=== PATIENT | female | born 1965 | race African-American/Black ===

== ENCOUNTER 2019-09-24 21:01 | Observation (INO) | payer OTHER, SELFPAY ==
[2019-09-24] VITALS (7 sets, daily range): BP systolic 124–159; BP diastolic 71–96; PULSE 67–84; RESP 17–19; TEMP 36.7; O2SAT 97–98
--- NOTE | ~2019-09-24 | CT_ITS ---
EXAMINATION: CTA chest PE protocol DATE: 09/24/2019 22:34 CDT INDICATION: Syncope. Dyspnea. TECHNIQUE: Computed tomographic angiography (CTA) of the chest was performed with 100 mL Omnipaque-35 0 intravenous contrast. The dose-length product was 1026.98 mGy-cm. Maximum intensity projection 3D-r econstructions of the aorta and other arteries were constructed by the technologist on a separate wor kstation. COMPARISON: Chest x-ray dated 09/24/2019. FINDINGS: Study is technically limited by motion artifact. There is pulmonary embolism in the left up per lobe segmental pulmonary artery, small thrombus burden. There is mediastinal and left hilar lymph adenopathy. Cardiomegaly. No significant pleural or pericardial effusion. No evidence for aortic aneu rysm or dissection. Multiple subsolid nodules in both lungs including the left upper and bilateral lo wer lobes. There is additional scattered areas of groundglass opacification in the lingula and left l ower lobe. There is a 2 cm some solid nodule in the left upper lobe, image 46. There are multiple clu stered subsolid nodules in the lingula, largest measuring 2.1 cm, image 62. There are pleural-based a reas of consolidation. There are changes of gastric bypass surgery in the upper abdomen. IMPRESSION: 1. Small filling defect left upper lobe segmental pulmonary artery, consistent with pulmonary embolis m, small thrombus burden. 2: Extensive mixed areas of subsolid nodularity, groundglass opacification and peripheral airspace co nsolidation. Differential diagnosis includes infection, metastatic disease, lymphoma and/or multiple areas of pulmonary infarction. 3: Mediastinal and left hilar lymphadenopathy. Cannot exclude metastatic disease or lymphoma. 4: Cardiomegaly. Reviewed, dictated and finalized at location A. IMPRESSION: 1. Small filling defect left upper lobe segmental pulmonary artery, consistent with pulmonary embolism, small thrombus burden. 2: Extensive mixed areas of subsolid nodularity, groundglass opacification and peripheral airspace consolidation. Differential diagnosis includes infection, m etastatic disease, lymphoma and/or multiple areas of pulmonary infarction. 3: Mediastinal and left hilar lymphadenopathy. Cannot exclude metastatic diseas e or lymphoma. 4: Cardiomegaly.
--- NOTE | ~2019-09-24 | XR_ITS ---
XR chest 1V 09/24/2019 21:53 Indication: Syncope. History of asthma. Procedure: AP view of the chest Comparison: No prior studies for comparison. Findings: Bibasilar airspace disease. Heart size normal. No pleural effusion, edema or pneumothorax. Impression: 1: Bibasilar airspace disease, compatible with pneumonia. Reviewed, dictated and finalized at location A. Impression: 1: Bibasilar airspace disease, compatible with pneumonia.
--- NOTE | ~2019-09-24 | CT_ITS ---
EXAMINATION: CT BRAIN W/O DATE: 09/24/2019 21:46 INDICATION: Headache TECHNIQUE: Computed tomography (CT) of the head was performed without intravenous contrast. The dose- length product was 605.33 mGy-cm. The mA was adjusted according to patient size. Iterative reconstruc tion technique was employed. COMPARISON: No prior studies for comparison. FINDINGS: Normal brain parenchymal volume for age. Normal mariscal-white differentiation. No acute intrac ranial hemorrhage, infarction, mass or mass effect. No ventriculomegaly or midline shift. Midline sagittal images demonstrate a normal corpus callosum, c raniovertebral junction and sella turcica. Basilar cisterns are patent. Paranasal sinuses and mastoids are pneumatized. No depressed skull fractures. IMPRESSION: 1. No acute intracranial abnormality. Reviewed, dictated and finalized at location A.
--- NOTE | ~2019-09-24 | US_ITS ---
EXAMINATION: US carotid duplex BI DATE: 09/25/2019 17:37 INDICATION: Syncope. Carotid stenosis. TECHNIQUE: Grayscale, color Doppler, and pulsed Doppler images of the cervical carotid arteries were obtained. The degree of vessel stenosis is placed in one of the following categories: normal, <50%, 5 0-69%, >=70% but less than near-occlusion, near-occlusion, or total occlusion. Note that percent sten osis relative to normal distal artery lumen diameter is indirectly measured from velocity measurement s as described by Rafita, et al. Radiology 2003; 229:340-346. Notes: Normal: Peak systolic velocity <125 centimeters/sec and no plaque <50%. Peak systolic velocity <125 ( EDV <40; ICA/CCA PSV ratio <2.0; used these factors only a tandem lesions or low cardiac output or co ntralateral disease) 50-69 %: PSV 125-230 (EDV 40-100; ratio 2-4) >= 70% but less than near occlusion: PSV greater than 230 (EDV > 100; ratio> 4.0) Near Occlusion: PSV that is variable; markedly narrowed lumen Occlusion: Absent flow on color/spectral Doppler and no lumen on mariscal scale. COMPARISON: None. FINDINGS: RIGHT: The right common carotid artery (CCA) peak systolic velocity (PSV) is 81 cm/s. The right internal car otid artery (ICA) PSV is 87 cm/s. The right ICA end-diastolic velocity (EDV) is 18 cm/s. The right IC A/CCA PSV ratio is 1.1. The external carotid artery (ECA) PSV is 56 cm/s. There is antegrade flow in the right vertebral artery. LEFT: The left CCA PSV is 96 cm/s. The left ICA PSV is 110 cm/s. The left ICA EDV is 21 cm/s. The left ICA/ CCA PSV ratio is 1.1. The ECA PSV is 92 cm/s. There is antegrade flow in the left vertebral artery. IMPRESSION: 1. Less than 50% stenosis in the right internal carotid artery by sonographic criteria. 2. Less than 50% stenosis in the left internal carotid artery by sonographic criteria. Reviewed, dictated and finalized at location A. IMPRESSION: 1. Less than 50% stenosis in the right internal carotid artery by sonographic price thakur. 2. Less than 50% stenosis in the left internal carotid artery by sonographic coral ortiz.
--- NOTE | ~2019-09-24 | US_ITS ---
EXAMINATION:US venous doppler LE BI INDICATION:Leg swelling. Evaluate for DVT. TECHNIQUE: Multiple grayscale, color flow and Doppler images of the lower extremity deep venous syste ms were obtained and reviewed. COMPARISON:No prior studies for comparison. FINDINGS: The common femoral, superficial femoral and popliteal veins demonstrate normal respiratory variation, augmentation and compressibility. Color flow is also seen within the posterior tibial, pe roneal, greater saphenous and profunda veins. IMPRESSION: 1: No lower extremity deep venous thrombosis. Reviewed, dictated and finalized at location A.
--- NOTE | 2019-09-24 21:25 | ECG_ITS ---
Measurements Intervals [place] Rate: 75 P: 54 [place]: 182 QRS: 19 QRSD: 91 T: 12 QT: 387 QTc: 434 Interpretive Statements SINUS RHYTHM LOW QRS VOLTAGE IN PRECORDIAL LEADS BORDERLINE ST-T WAVE ABNORMALITY- INFERIOR LEADS BORDERLINE ECG Electronically Signed On 09-25-2019 7:22:41 CDT by Sandeep Castorena D.O.
--- NOTE | 2019-09-24 21:25 | ED.GENADULT ---
HPI - General Adult General Chief complaint: Fall Stated complaint: Fell down, syncope, CRUZ Time Seen by Provider: 09/24/19 21:18 Source: RN notes reviewed History of Present Illness HPI narrative: Patient presents emergency department for headache. Patient states she had a syncopal episode approximately 6 days ago. States she woke up and felt lightheaded walk to the kitchen to get something to drink and when she was walking on the re[place] and had a syncopal episode. She states she is had no further syncopal episodes since that time but states she is had a residual headache. She states she feels mildly unsteady on her feet but denies any vision changes numbness or tingling of the extremities weakness of any extremities chest pain, shortness of breath abdominal pain nausea vomiting or any other symptoms. States she last took Tylenol this morning Related Data Home Medications Medication Instructions Recorded Confirmed albuterol sulfate 1.25 mg INHALATION Q4H 09/24/19 levocetirizine mg 09/24/19 Allergies Allergy/AdvReac Type Severity Reaction Status Date / Time clarithromycin Allergy Unknown Verified 09/24/19 23:27 clindamycin Allergy Rash Verified 09/24/19 23:27 gabapentin Allergy Swelling Verified 09/24/19 23:27 NSAIDS (Non-Steroidal Allergy Other Verified 09/24/19 23:27 Anti-Inflamma peanut Allergy Anaphylaxis Verified 09/24/19 23:27 Penicillins Allergy Hives Verified 09/24/19 23:27 sulfamethoxazole Allergy Gastrointestinal Verified 09/24/19 23:27 [From Bactrim] Upset trimethoprim [From Bactrim] Allergy Gastrointestinal Verified 09/24/19 23:27 Upset Review of Systems Review of Systems: Narrative: Gen.: Denies fevers or chills Eyes: Denies eye pain or visual change ENT: Denies congestion Respiratory: Denies shortness of breath or cough CV: Reports syncope GI: Denies abdominal pain nausea, emesis or diarrhea Musculoskeletal: Denies back pain or muscle pain Neuro: Denies numbness, tingling, weakness or focal weakness, reports headache Skin: Denies rash Except as documented, all other systems reviewed and negative PMF Past Medical History Medical History (Updated 09/24/19 @ 23:59 by Demetri Acosta DO) Asthma IgG4 deficiency Social History Social History (Updated 09/24/19 @ 21:27 by Demetri Acosta DO) Smoking status: Never smoker Gender identity (if verbalized by the patient): Female Exam Narrative: Exam Narrative: APPEARANCE: No acute distress, nontoxic, resting in bed HEENT: Normocephalic, atraumatic, OMM, TMs clear bilaterally EYES: PERRL, EOMI NECK: Supple, nontender, full range of motion without pain, no meningismus RESPIRATORY: No respiratory distress, clear to auscultation bilaterally with no rhonchi wheezing or rales CARDIOVASCULAR: RRR s murmur ABDOMINAL: Soft, nontender, nondistended MUSCULOSKELETAL: Moves all extremities. No clubbing, cyanosis or edema. NEURO: A and O ?3, following commands, speech normal, no facial droop,muscle strength 5 out of 5 bilateral upper and lower extremities SKIN:: Warm, dry. Normal Color PSYCHIATRIC: Normal affect/mood Course Course Emergency Course: Discussed Dr. Banks presentation work-up. Agrees with plan for Lovenox and Levaquin further inpatient evaluation Discussed with patient and family results of workup and diagnosis. Discussed need for admission. Patient and family understand and agree to current treatment plan After admission and discussion with patient regarding findings on CT scan the patient's now states to nursing staff that he did just recently get over COVID-19 Vital Signs Vital signs: Vital Signs Temperature 98.1 F 09/24/19 21:05 Pulse Rate 84 09/24/19 21:05 Respiratory Rate 18 09/24/19 21:05 Blood Pressure 138/72 09/24/19 21:05 Pulse Oximetry 97 09/24/19 21:05 Temperature 98.1 F 09/24/19 21:05 Pulse Rate 72 09/24/19 22:35 Respiratory Rate 19 09/24/19 22:35 Blood Pressure
[2019-09-24 21:38] LABS: Basophils Percent Auto 0.2 % (0.2-1.2); Eosinophils Percent Auto 0.9 % (0-4.4); Hemoglobin 11.6 g/dL (12.0-15.0); Immature Granulocyte Absolute 0.02 K/mm3 (0.00-0.031); Immature Granulocyte Percent A 0.4 % (0-0.5); Lymphocytes Absolute Auto 2.16 K/mm3 (0.9-3.2); Lymphocytes Percent Auto 47.4 % (18.3-44.2); Mean Corpuscular HGB Conc 31.4 g/dl (32-36); Mean Corpuscular Hemoglobin 24.4 pg (26-34); Mean Corpuscular Volume 77.7 fl (80-100); Mean Platelet Volume 10.6 fl (7.4-10.4); Monocytes Absolute Auto 0.3 K/mm3 (0.1-0.6); Neutrophils Percent Auto 44.1 % (45.5-73.1); Platelet Count Result 242 k/mm3 (150-375); Red Blood Count 4.76 M/mm3 (4.2-5.4); Red Cell Distribution Width 15.7 % (11.5-14.5); White Blood Count 4.6 K/mm3 (4.5-10.0)
[2019-09-24 21:47] LABS: Prothrombin Time 13.2 Seconds (11.1-14.7)
[2019-09-24 21:48] LABS: Partial Thromboplastin Time 30.6 SECONDS (22.3-36.8)
[2019-09-24 21:49] LABS: Alanine Aminotransferase 16 U/L (4-35); Albumin Level 4.3 g/dL (3.5-5.1); Alkaline Phosphatase 63 U/L (38-126); Aspartate Amino Transferase 29 U/L (14-36); Bilirubin,Total 0.2 mg/dL (0.2-1.3); Blood Urea Nitrogen 10 mg/dL (7-17); Calcium 9.3 mg/dL (8.4-10.2); Carbon Dioxide 28 mmol/L (22-30); Chloride 102 mmol/L (98-107); Estimated CRCL calculation 115 ml/min; Estimated Glomerular Filt Rate > 60; Glucose 98 mg/dL (65-105); Sodium 138 mmol/L (137-145)
[2019-09-24 22:01] LABS: Troponin I < 0.012 ng/mL (0.000-0.034)
[2019-09-24 22:23] LABS: Add Urine Microscopic? NO; Appearance Urine Clear (Clear); Bilirubin Urine Negative (Negative); Blood Urine Negative (Negative); Color Urine Straw (Yellow); Glucose Urine UA Negative (Negative); Ketones Urine Negative (Negative); Leukocyte Esterase Ur Negative LEU/UL (Negative); Mucus Urine Rare /lpf; Nitrate Urine Negative (Negative); Protein Urine Negative (Negative); RBC Urine 0-2 /hpf (0-2); Specific Grav Ur 1.012 (1.001-1.035); Squamous Epithelial Cell Urine Rare /hpf (Few); Urobilinogen Urine Negative mg/dL (<2.0); WBC Urine 0-3 /hpf
[2019-09-24] MEDS: SODIUM CHLORIDE 0.9% IV 1,000 ML 999 ML IV CONT ×2 (22:23)
[2019-09-24] MEDS: ENOXAPARIN 60 MG/0.6 ML SYRINGE SUB-Q (23:49)
[2019-09-24] MEDS: ENOXAPARIN 80 MG/0.8 ML SYRINGE SUB-Q (23:49)
[2019-09-24 23:56] LABS: Lactic Acid Reflex 0.8 mmol/L (0.7-2.1)
[2019-09-25] VITALS (12 sets, daily range): BP systolic 114–140; BP diastolic 56–71; PULSE 62–89; RESP 16–20; TEMP 35.8–37.1; O2SAT 98–100; BMI 49.4
--- NOTE | 2019-09-25 01:21 | ADMGEN ---
This patient, Marie Orourke, was admitted to [facility] Surg Room 328-01. Patient/family oriented to hospital policies and general routines including ID bracelet, bed and alarms, visiting hours, pain management, procedures, bathroom and other care routines, personal items, smoking policy, room service/diet, and visiting hours. Valuables list has been completed. Information on how to activate the Rapid Response Team has been discussed. Patient/Family are encouraged to report perceived risks to care and to ask questions if they do not understand what they are told or what they should do.
--- NOTE | 2019-09-25 02:09 | PM.IMHP ---
H&P: HPI History of Present Illness Chief complaint: Pulmonary embolism, community-acquired pneumonia Narrative: This is a pleasant 54 year old Female with known asthma and IgG4 deficiency who presented to the [facility] with a complaint of a headache. She apparently suffered a syncopal episode approximately 1 week ago at home as she was walking back to her room from the kitchen. She remembers feeling very dizzy on her way back to her room before passing out. The patient also experienced fever for two days following her syncopal episode. Since then, she has had a temperature of about 99 degrees F. She also reports starting to have a cough today with bloody sputum. She denies any significant shortness of breath. She also denies any chest pain, abdominal pain, nausea, vomiting, diarrhea, dysuria, or focal neurological symptoms. Her is known to have tested positive for Covid-19 and was quaranteened. Her last close contact with him was over 2 weeks ago. She admits that since she had her episode of syncope she has been just laying around this past week. No recent surgery or long distance travel. The patient is not on hormone replacement therapy. The patient was evaluated in the ER and found to have a small filling defect left upper lobe segmental pulmonary artery, consistent with pulmonary embolism, small thrombus burden as well as extensive mixed areas of subsolid nodularity, groundglass opacification and peripheral airspace consolidation. The patient was treated with therapeutic SC Lovenox as well as IV antibiotics for possible bacterial pneumonia. She was swabbed for COVID-19 and admitted to the hospital for further care. no other complaints. Review of Systems Review of Systems: All systems reviewed & are unremarkable except as noted in HPI and below PMFSH Past Medical History Medical History (Updated 09/25/19 @ 02:24 by Himanshu Banks MD) Asthma IgG4 deficiency Surgical History Surgical History (Updated 09/25/19 @ 02:18 by Himanshu Banks MD) Hx of lymph node biopsy Family History Family History Father Acute myocardial infarction Hypertension Prostate carcinoma Mother Cerebrovascular accident Congestive heart failure Diabetes mellitus Social History Social History Smoking status: Never smoker Alcohol intake: never Substance use: never Gender identity (if verbalized by the patient): Female Spiritual care concerns: No Meds Home Medications and Allergies Home Medications Medication Instructions Recorded Confirmed Type albuterol sulfate 1.25 mg INHALATION QID PRN 09/24/19 09/25/19 History levocetirizine 5 mg PO HS 09/24/19 09/25/19 History budesonide-formoterol [Symbicort] 2 puff INHALATION Q12H 09/25/19 09/25/19 History calcium carbonate-vitamin D3 1 tablet PO DAILY 09/25/19 09/25/19 History [Calcium 500 + D] fluticasone propionate [Flonase 1 spray INTRANASAL DAILY 09/25/19 09/25/19 History Allergy Relief] prednisone 10 mg PO DAILY 09/25/19 09/25/19 History Allergies Allergy/AdvReac Type Severity Reaction Status Date / Time clarithromycin Allergy Severe Hives Verified 09/25/19 01:36 clindamycin Allergy Severe Hives Verified 09/25/19 01:36 gabapentin Allergy Severe Hives Verified 09/25/19 01:36 peanut Allergy Severe Anaphylaxis Verified 09/25/19 01:36 Penicillins Allergy Severe Hives Verified 09/25/19 01:36 NSAIDS (Non-Steroidal AdvReac Severe S/P Verified 09/25/19 01:36 Anti-Inflamma GASTRIC SLEEVE sulfamethoxazole AdvReac Severe Gastrointestinal Verified 09/25/19 01:36 [From Bactrim] Upset trimethoprim [From Bactrim] AdvReac Severe Gastrointestinal Verified 09/25/19 01:36 Upset Vital Signs Vital Signs - 24 hr 09/24/19 21:05 09/24/19 21:16 09/24/19 21:33 Temperature 36.7 C Pulse Rate 84 67 Respiratory Rate 18 17 Blood P
[2019-09-25 06:54] LABS: Basophils Percent Auto 0.4 % (0.2-1.2); Eosinophils Absolute Auto 0.1 K/mm3 (0-0.3); Eosinophils Percent Auto 0.9 % (0-4.4); Hematocrit 32.7 % (37.0-47.0); Hemoglobin 10.4 g/dL (12.0-15.0); Immature Granulocyte Absolute 0.01 K/mm3 (0.00-0.031); Immature Granulocyte Percent A 0.2 % (0-0.5); Lymphocytes Absolute Auto 3.41 K/mm3 (0.9-3.2); Lymphocytes Percent Auto 60.7 % (18.3-44.2); Mean Corpuscular HGB Conc 31.8 g/dl (32-36); Mean Corpuscular Hemoglobin 24.5 pg (26-34); Mean Corpuscular Volume 77.1 fl (80-100); Mean Platelet Volume 10.5 fl (7.4-10.4); Monocytes Absolute Auto 0.5 K/mm3 (0.1-0.6); Monocytes Percent Auto 8.2 % (2.6-8.5); Neutrophils Absolute Auto 1.7 K/mm3 (1.3-6.7); Neutrophils Percent Auto 29.6 % (45.5-73.1); Platelet Count Result 203 k/mm3 (150-375); Red Blood Count 4.24 M/mm3 (4.2-5.4); Red Cell Distribution Width 15.7 % (11.5-14.5); White Blood Count 5.6 K/mm3 (4.5-10.0)
[2019-09-25 07:04] LABS: Alanine Aminotransferase 13 U/L (4-35); Albumin Level 3.6 g/dL (3.5-5.1); Alkaline Phosphatase 49 U/L (38-126); Aspartate Amino Transferase 22 U/L (14-36); Bilirubin,Total 0.2 mg/dL (0.2-1.3); Blood Urea Nitrogen 7 mg/dL (7-17); Calcium 8.4 mg/dL (8.4-10.2); Carbon Dioxide 25 mmol/L (22-30); Chloride 105 mmol/L (98-107); Estimated CRCL calculation 118 ml/min; Estimated Glomerular Filt Rate > 60; Glucose 101 mg/dL (65-105); Potassium 3.4 mmol/L (3.4-5.0); Sodium 136 mmol/L (137-145)
[2019-09-25] MEDS: predniSONE 10 MG TABLET PO (08:19)
[2019-09-25] MEDS: FLUTICASONE PROPIONATE 0.05% NA SPR 16 GM BTL (*BKC) 1 SPRAY NASAL (08:19)
[2019-09-25] MEDS: ENOXAPARIN 80 MG/0.8 ML SYRINGE SUB-Q ×2 (09:00→20:35)
[2019-09-25] MEDS: ENOXAPARIN 60 MG/0.6 ML SYRINGE SUB-Q ×2 (09:00→20:35)
[2019-09-25] MEDS: ACETAMINOPHEN 325 MG TABLET 650 MG PO ×3 (11:20→21:30)
--- NOTE | 2019-09-25 12:50 | PM.IMPN ---
Progress Note: A&P Assessment and Plan (1) Pulmonary embolism: Qualifiers: Acute cor pulmonale presence: without acute cor pulmonale Chronicity: acute Pulmonary embolism type: unspecified Qualified Code(s): I26.99 - Other pulmonary embolism without acute cor pulmonale Code(s): I26.99 - Other pulmonary embolism without acute cor pulmonale Status: Acute Assessment and Plan: Seen in left upper lobe segmental pulmonary artery with small thrombus burden. This may be due to the patient being sedentary more recently, or may be related to COVID infection. She is not on any form of hormone replacement therapy. She denies any history of clotting disorder. We had a long discussion regarding risks of anticoagulation therapy, as well as risks of leaving PE untreated. The patient understands and requests to continue with anticoagulation therapy. Continue therapeutic Lovenox Plan to transition to oral anticoagulant. Care coordination has been consulted for pricing. Check lower extremity Doppler ultrasound to rule out DVT Continue to monitor closely (2) Community acquired pneumonia: Qualifiers: Laterality: unspecified laterality Qualified Code(s): J18.9 - Pneumonia, unspecified organism Code(s): J18.9 - Pneumonia, unspecified organism Status: Acute Assessment and Plan: CXR demonstrates bibasilar airspace disease consistent with pneumonia. The patient has productive cough. She has been afebrile and without leukocytosis. She is maintaining adequate oxygenation on room air. Continue IV Levaquin Blood cultures are pending Will attempt collection of sputum culture Continue oxygen supplementation as needed with goal >90% Continue bronchodilators and supportive care with Mucinex and Tylenol as needed (3) Suspected COVID-19 virus infection: Code(s): Z20.828 - Contact with and (suspected) exposure to other viral communicable diseases Status: Acute Assessment and Plan: She has been tested for COVID-19. Her recently recovered from COVID-19 approximately 2 weeks ago. Continue isolation precautions Await testing results Trend acute phase reactants Continue supportive care as above (4) Syncope and collapse: Code(s): R55 - Syncope and collapse Status: Acute Assessment and Plan: She had a syncopal episode approximately 1 week ago in her home. She recalls feeling dizzy before passing out. This may have been related to acute illness or dehydration. She is asymptomatic at this time. Continue to monitor on telemetry Echocardiogram and carotid Doppler ultrasound have been ordered and will await results Will check TSH with reflex T4 Continue to monitor closely (5) Headache: Qualifiers: Headache type: tension-type Headache chronicity pattern: chronic headache Intractability: not intractable Qualified Code(s): G44.229 - Chronic tension-type headache, not intractable Code(s): R51 - Headache Status: Acute Assessment and Plan: Frontal and temporal pressure headache which has been ongoing for approximately 2 weeks. Not similar to prior migraines patient has had. Head CT performed in ED with no acute abnormalities. Suspect this is related to acute illness, as there have been reports of prolonged headache in patients who are COVID positive. Continue acetaminophen as needed. Patient has been taking acetaminophen home with relief. Continue Flonase and Xyzal to help relieve sinus pressure/congestion Continue to monitor closely (6) Asthma: Qualifiers: Asthma severity: unspecified severity Asthma persistence: unspecified Asthma complication type: unspecified Qualified Code(s): J45.909 - Unspecified asthma, uncomplicated Code(s): J45.909 - Unspecified asthma, uncomplicated Status: Chronic Assessment and Plan: Stable at this time. She denies feeling s
[2019-09-25 13:09] LABS: SARS-CoV-2 RNA PCR Positive
[2019-09-26] VITALS (8 sets, daily range): BP systolic 130–140; BP diastolic 54–70; PULSE 55–81; RESP 16–18; TEMP 36.6–36.7; O2SAT 97–99
[2019-09-26] MEDS: ACETAMINOPHEN 325 MG TABLET 650 MG PO ×3 (01:36→12:01)
--- NOTE | 2019-09-26 02:20 | ECHO_ITS ---
Patient Info Name: Marie Orourke Age: 54 years : 1965 Gender: Female Ht: 67 in Wt: 315 lbs BSA: 2.68 m2 HR: 55 bpm BP: 130 / 54 mmHg Technical Quality: Fair Exam Date: 09/26/2019 11:18 AM Exam Location: [facility] Pulmonary Exam Room: [facility] Patient Status: Inpatient Admit Date: 09/24/2019 Staff Ordering Physician: Himanshu Banks MD Ship Worker: Ivania Jo RDCS Attending Provider: Celeste Zurita PA-C Referring Physician: Darren GARRIDO; Exam Type: CA echo doppler color flow Study Info Indications - syncope Complete two-dimensional, color flow and Doppler transthoracic echocardiogram is performed. covid protocol. Summary 1. Left ventricular chamber dimension is normal. 2. Left ventricular systolic function is normal, estimated at 65-70%. 3. There is mildly increased left ventricular wall thickness. 4. Left ventricular septal wall motion is abnormal with septal motion related to bundle branch block. 5. The left ventricular diastolic function is abnormal. 6. E/e' 11 is mildly elevated. 7. There is mild aortic valve sclerosis. 8. No pulmonary hypertension, estimated pulmonary arterial systolic pressure is 21 mmHg. Left Ventricle E/e' 11 is mildly elevated. Left ventricular chamber dimension is normal. Left ventricular systolic function is normal, estimated at 65-70%. There is mildly increased left ventricular wall thickness. Left ventricular septal wall motion is abnormal with septal motion related to bundle branch block. The left ventricular diastolic function is abnormal. Right Ventricle Right ventricular chamber dimension is normal. Right ventricular systolic function is normal. Left Atria Left atrial chamber dimension is normal. Right Atria Right atrial chamber dimension is normal. Aortic Valve The aortic valve is trileaflet. There is mild aortic valve sclerosis. There is no aortic valve stenosis. There is no aortic valve regurgitation. Pulmonic Valve There is no pulmonic regurgitation. Mitral Valve There is no mitral valve stenosis. There is no mitral valve regurgitation. Tricuspid Valve There is no tricuspid valve regurgitation. No pulmonary hypertension, estimated pulmonary arterial systolic pressure is 21 mmHg. Pericardium/Pleural There is no pericardial effusion. Inferior Vena Cava Normal inferior vena cava with >50% collapse upon inspiration consistent with normal right atrial pressure, 5 mmHg. Aorta The aortic root size at the sinus of Valsalva is normal. Left Ventricular Outflow Tract Name Value Normal LVOT 2D LVOT Diameter 2.0 cm LVOT Doppler LVOT Peak Gradient 4 mmHg LVOT Mean Gradient 3 mmHg LVOT VTI 23 cm LVOT VTI/AV VTI Ratio 0.9 LVOT Stroke Volume 73 ml LVOT CO 14.8 l/min LVOT CI 5.5 l/min/m2 Pulmonic Valve Name
[2019-09-26 06:32] LABS: Hematocrit 33.8 % (37.0-47.0); Hemoglobin 10.8 g/dL (12.0-15.0); Mean Corpuscular Hemoglobin 24.8 pg (26-34); Mean Corpuscular Volume 77.5 fl (80-100); Mean Platelet Volume 10.3 fl (7.4-10.4); Platelet Count Result 274 k/mm3 (150-375); Red Blood Count 4.36 M/mm3 (4.2-5.4); Red Cell Distribution Width 15.5 % (11.5-14.5); White Blood Count 5.7 K/mm3 (4.5-10.0)
[2019-09-26 06:50] LABS: Blood Urea Nitrogen 7 mg/dL (7-17); CRP 0.8 mg/dL (<1.0); Calcium 8.9 mg/dL (8.4-10.2); Carbon Dioxide 25 mmol/L (22-30); Chloride 105 mmol/L (98-107); Creatine Kinase 52 U/L (30-135); Estimated CRCL calculation 118 ml/min; Estimated Glomerular Filt Rate > 60; Glucose 97 mg/dL (65-105); Lactate Dehydrogenase 557 U/L (313-618); Potassium 3.5 mmol/L (3.4-5.0); Sodium 138 mmol/L (137-145)
[2019-09-26] MEDS: ENOXAPARIN 60 MG/0.6 ML SYRINGE SUB-Q (08:53)
[2019-09-26] MEDS: ENOXAPARIN 80 MG/0.8 ML SYRINGE SUB-Q (08:53)
[2019-09-26] MEDS: predniSONE 10 MG TABLET PO (08:54)
[2019-09-26] MEDS: FLUTICASONE PROPIONATE 0.05% NA SPR 16 GM BTL (*BKC) 1 SPRAY NASAL (08:54)
--- NOTE | 2019-09-26 14:30 | PM.DS ---
DS: Admitting Diagnosis Admitting Diagnosis Admitting Diagnosis: Other pulmonary embolism without acute cor pulmonale DS: Discharge Diagnosis Discharge Diagnosis (1) Pulmonary embolism: Qualifiers: Acute cor pulmonale presence: without acute cor pulmonale Chronicity: acute Pulmonary embolism type: unspecified Qualified Code(s): I26.99 - Other pulmonary embolism without acute cor pulmonale Code(s): I26.99 - Other pulmonary embolism without acute cor pulmonale Status: Acute Assessment and Plan: Evident on CTA in left upper lobe segmental pulmonary artery with small thrombus burden. This may be secondary to COVID-19, or simply may be due to patient recently becoming more sedentary.She is not on any form of hormone replacement therapy and denied any history of clotting disorder. LE Doppler negative for DVT. She was initiated on therapeutic Lovenox. She was relatively asymptomatic and had adequate oxygenation. We had a long discussion regarding risks of anticoagulation therapy to which she voiced understanding and agreed to continue with Eliquis. We discussed importance of monitoring for signs/symptoms of bleeding. She will follow up with her PCP via telemedicine in 1 week and schedule an in person appointment as soon as she is able. (2) COVID-19: Code(s): U07.1 - COVID-19 Status: Acute Assessment and Plan: She tested positive for COVID-19 on 09/24/19. Her recently tested positive as well. She was placed on isolation precautions. We discussed self-isolation and following that, social distancing, mask wearing, hand hygiene, and other preventative measures. She will follow up with PCP in 1 week. (3) Community acquired pneumonia: Qualifiers: Laterality: unspecified laterality Qualified Code(s): J18.9 - Pneumonia, unspecified organism Code(s): J18.9 - Pneumonia, unspecified organism Status: Acute Assessment and Plan: CXR showed bibasilar airspace disease consistent with pneumonia, likely secondary to COVID-19. She had productive cough, but remained afebrile and without leukocytosis. She maintained adequate oxygenation on room air. She was treated with IV Levaquin which she will continue for 5 days to complete a full course. Blood cultures were negative. (4) Syncope and collapse: Code(s): R55 - Syncope and collapse Status: Acute Assessment and Plan: She had a syncopal episode approximately 1 week ago in her home. She recalls feeling dizzy before passing out. This may have been related to acute illness or dehydration. Carotid doppler US showed <50% stenosis of both right and left ICA. Echo showed EF 65-70%, abnormal septal wall motion with bundle branch block, mild aortic sclerosis, and normal pulmonary artery pressure. She was monitored on telemetry which did not show any significant arrhythmias or pauses. She was instructed to stay well hydrated and she will need to follow up with her PCP to discuss these findings. (5) Headache: Qualifiers: Headache chronicity pattern: chronic headache Headache type: tension-type Intractability: not intractable Qualified Code(s): G44.229 - Chronic tension-type headache, not intractable Code(s): R51 - Headache Status: Acute Assessment and Plan: She complained of frontal and temporal pressure headache which had been ongoing for approximately 2 weeks and was not similar to prior migraines patient has had. Head CT performed in ED with no acute abnormalities. I suspect this is related to acute illness, as there have been reports of prolonged headache in patients who are COVID positive. Headache improved with acetaminophen. Continue Flonase and Xyzal to help relieve sinus pressure/congestion. (6) Asthma: Qualifiers: Asthma complication type: unspecified Asthma persistence: unspecified Asthma severity: unspecified severity Qualified Code(s): J4
== END 2019-09-26 15:55 | disposition home or self-care (01) ==
LOC: ANHED 22:11 → ANH3MEDSUR 23:42
PROVIDERS: Physician Assistant; Admitting Provider Family Medicine; Emergency Provider Emergency Medicine; Visit Provider Internal Medicine
DX: U07.1 COVID-19 (principal); J12.89 Other viral pneumonia; I26.99 Other pulmonary embolism without acute cor pulmonale; J45.909 Unspecified asthma, uncomplicated; D80.3 Selective deficiency of immunoglobulin G [IgG] subclasses; G44.229 Chronic tension-type headache, not intractable; R55 Syncope and collapse; R22.43 Localized swelling, mass and lump, lower limb, bilateral; Z79.899 Other long term (current) drug therapy
CPT/HCPCS: 36415; 70450; 71045; 71275; 80048; 80053; 81003; 81025; 82550; 82728; 83605; 83615; 84484; 85025; 85027; 85610; 85730; 86140; 87040; 87635; 93005; 93306; 93880; 93970; 94640; 96361; 96365; 96372; 96374; 96375; 96376; 99291; A9270; C9803; G0378; J0131; J1650; J1956; J7030; J7512; Q9967; U0003

== ENCOUNTER 2019-10-20 14:28 | Emergency (ER) | payer OTHER, SELFPAY ==
--- NOTE | ~2019-10-20 | XR_ITS ---
XR finger 5th RT min 2V DATE: 10/20/2019 15:15 INDICATION: Fall on October 18 onto right fifth digit; pain and swelling at the middle phalanx TECHNIQUE: 4 views COMPARISON: None FINDINGS: There is a nondisplaced transverse metaphyseal fracture of the middle phalanx. There is no significant angulation. There is osteoarthritic change at the interphalangeal joints. IMPRESSION: Nondisplaced metaphyseal fracture of middle phalanx of fifth digit Reviewed, dictated and finalized at location B.
[2019-10-20 14:31] VITALS: BP 131/76; PULSE 94; RESP 16; TEMP 36.7; O2SAT 100
--- NOTE | 2019-10-20 15:51 | ED.UPPEXIN ---
HPI - Extremity Injury (Upper) General Chief Complaint: Extremity Injury, Upper Stated Complaint: R HAND INJURY Time Seen by Provider: 10/20/19 14:40 History of Present Illness HPI narrative: Patient is a 54-year-old female who presents with right fifth finger pain. Reports 1 month ago when she had a PE with syncope and COVID she fell onto her right finger and never had it imaged. Since then it has been swollen and occasionally painful. She has developed some mild improvement in her range of motion but thought she should have it evaluated. No numbness or tingling. No redness. No additional areas of pain. Related Data Home Medications Medication Instructions Recorded Confirmed albuterol sulfate 1.25 mg INHALATION QID PRN 09/24/19 09/25/19 levocetirizine 5 mg PO HS 09/24/19 09/25/19 budesonide-formoterol [Symbicort] 2 puff INHALATION Q12H 09/25/19 09/25/19 calcium carbonate-vitamin D3 1 tablet PO DAILY 09/25/19 09/25/19 [Calcium 500 + D] fluticasone propionate [Flonase 1 spray INTRANASAL DAILY 09/25/19 09/25/19 Allergy Relief] prednisone 10 mg PO DAILY 09/25/19 09/25/19 Allergies Allergy/AdvReac Type Severity Reaction Status Date / Time clarithromycin Allergy Severe Hives Verified 09/25/19 01:36 clindamycin Allergy Severe Hives Verified 09/25/19 01:36 gabapentin Allergy Severe Hives Verified 09/25/19 01:36 peanut Allergy Severe Anaphylaxis Verified 09/25/19 01:36 Penicillins Allergy Severe Hives Verified 09/25/19 01:36 NSAIDS (Non-Steroidal AdvReac Severe S/P Verified 09/25/19 01:36 Anti-Inflamma GASTRIC SLEEVE sulfamethoxazole AdvReac Severe Gastrointestinal Verified 09/25/19 01:36 [From Bactrim] Upset trimethoprim [From Bactrim] AdvReac Severe Gastrointestinal Verified 09/25/19 01:36 Upset Review of Systems Musculoskeletal: Musculoskeletal: Reports arthralgias and Reports joint swelling Neurologic: Denies focal weakness and Denies numbness PMFSH Past Medical History Medical History (Updated 10/20/19 @ 16:08 by Navarro Bonilla MD) Asthma IgG4 deficiency Pulmonary embolism Surgical History Surgical History (Updated 09/25/19 @ 02:18 by Himanshu Banks MD) Hx of lymph node biopsy Social History Social History Smoking status: Never smoker Alcohol intake: never Substance use: never Gender identity (if verbalized by the patient): Female Spiritual care concerns: No Exam Narrative: Exam Narrative: GENERAL: Well-appearing, well-nourished, and in no acute distress. HEAD: Normocephalic, atraumatic. EXTREMITIES: Normal range of motion. Mild swelling over the middle phalanx near the PIP on the right fifth digit. Flexion extension intact there is no redness. SKIN: Warm, dry, no rash. NEURO: Alert and oriented x3. PSYCH: Normal mood and affect. Course Course Emergency Course: Patient informed of results. Nurse placed a metal finger splint for comfort. D/c. Vital Signs Vital signs: Vital Signs Temperature 98.1 F 10/20/19 14:31 Pulse Rate 94 10/20/19 14:31 Respiratory Rate 16 10/20/19 14:31 Blood Pressure 131/76 10/20/19 14:31 Pulse Oximetry 100 10/20/19 14:31 Temperature 98.1 F 10/20/19 14:31 Pulse Rate 94 10/20/19 14:31 Respiratory Rate 16 10/20/19 14:31 Blood Pressure 131/76 10/20/19 14:31 Pulse Oximetry 100 10/20/19 14:31 Procedures Orthopedic Splinting/Casting Injury #1: Splinting/Casting Date: 10/20/19 Splinting/Casting Time: 16:09 Side: right Upper Extremity Injury Location: finger Upper Extremity Immobilizer: finger (other) Pre-Formed: metal foam finger splint Pre-Procedure Neuro Vascular Exam: normal Post-Procedure Neuro Vascular Exam: normal Discharge Plan Discharge Clinical Impression: Finger fracture, right Patient Disposition: Home, Self-Care Condition: Stable Additional Instructions: Return to th
[2019-10-20 16:14] VITALS: BP 143/84; PULSE 82; RESP 16; TEMP 36.6; O2SAT 98
== END 2019-10-20 16:15 | disposition home or self-care (01) ==
PROVIDERS: Emergency Provider Emergency Medicine
DX: S62.656A Nondisplaced fracture of middle phalanx of right little finger, initial encounter for closed fracture (principal); Z86.711 Personal history of pulmonary embolism; J45.909 Unspecified asthma, uncomplicated; D80.3 Selective deficiency of immunoglobulin G [IgG] subclasses; Z86.19 Personal history of other infectious and parasitic diseases
CPT/HCPCS: 29130; 73140; 99284

== ENCOUNTER 2020-06-17 21:35 | Emergency (ER) | payer OTHER, SELFPAY ==
[2020-06-17 21:42] VITALS: BP 149/98; PULSE 113; RESP 19; TEMP 36.4; O2SAT 100
--- NOTE | 2020-06-17 23:22 | ED.ALLEREA ---
HPI - Allergic Reaction General Chief complaint: Allergic Reaction Stated complaint: Reaction to Vaccination Time Seen by Provider: 06/17/20 22:53 Source: patient Mode of arrival: ambulatory Limitations: no limitations History of Present Illness HPI narrative: This is a 55-year-old female that presents the emergency department for redness and swelling to the left upper arm since yesterday. Reports she had her Covid vaccination 3 days ago. Reports she noted yesterday the area was red. Reports she has had worsening redness and swelling today. Also reports the area is hot. Denies fevers. Related Data Home Medications Medication Instructions Recorded Confirmed albuterol sulfate 1.25 mg INHALATION QID PRN 09/24/19 09/25/19 levocetirizine 5 mg PO HS 09/24/19 09/25/19 budesonide-formoterol [Symbicort] 2 puff INHALATION Q12H 09/25/19 09/25/19 calcium carbonate-vitamin D3 1 tablet PO DAILY 09/25/19 09/25/19 [Calcium 500 + D] fluticasone propionate [Flonase 1 spray INTRANASAL DAILY 09/25/19 09/25/19 Allergy Relief] montelukast mg 06/17/20 Allergies Allergy/AdvReac Type Severity Reaction Status Date / Time clarithromycin Allergy Severe Hives Verified 06/17/20 21:45 clindamycin Allergy Severe Hives Verified 06/17/20 21:45 gabapentin Allergy Severe Hives Verified 06/17/20 21:45 peanut Allergy Severe Anaphylaxis Verified 06/17/20 21:45 Penicillins Allergy Severe Hives Verified 06/17/20 21:45 NSAIDS (Non-Steroidal AdvReac Severe S/P Verified 06/17/20 21:45 Anti-Inflamma GASTRIC SLEEVE sulfamethoxazole AdvReac Severe Gastrointestinal Verified 06/17/20 21:45 [From Bactrim] Upset trimethoprim [From Bactrim] AdvReac Severe Gastrointestinal Verified 06/17/20 21:45 Upset Review of Systems Review of Systems: Narrative: CONSTITUTIONAL: Denies fever SKIN: Reports rash All systems reviewed & are unremarkable except as noted in HPI and below PMFSH Past Medical History Medical History (Updated 06/17/20 @ 23:26 by Rissa Martin PA-C) Asthma IgG4 deficiency Pulmonary embolism Surgical History Surgical History (Updated 09/25/19 @ 02:18 by Himanshu Banks MD) Hx of lymph node biopsy Family History Family History Father Acute myocardial infarction Hypertension Prostate carcinoma Mother Cerebrovascular accident Congestive heart failure Diabetes mellitus Social History Social History Smoking status: Never smoker Alcohol intake: never Substance use: never Gender identity (if verbalized by the patient): Female Spiritual care concerns: No Exam Narrative: Exam Narrative: GENERAL: Well-appearing, well-nourished, and in no acute distress. HEAD: Normocephalic, atraumatic. EYES: EOMI. CHEST: Clear to auscultation. No respiratory distress. No wheezes rales or rhonchi HEART: Regular rate and rhythm. No murmur heard. Normal peripheral pulses. EXTREMITIES: Normal range of motion. Small area of erythema and edema to the left upper arm. No lymphangitic streaking. Normal radial pulses SKIN: Warm, dry, no rash. NEURO: No focal deficits. Alert and oriented x3. PSYCH: Normal mood and affect Course Vital Signs Vital signs: Vital Signs Temperature 97.6 F 06/17/20 21:42 Pulse Rate 113 H 06/17/20 21:42 Respiratory Rate 19 06/17/20 21:42 Blood Pressure 149/98 H 06/17/20 21:42 Pulse Oximetry 100 06/17/20 21:42 Temperature 97.6 F 06/17/20 21:42 Pulse Rate 113 H 06/17/20 21:42 Respiratory Rate 19 06/17/20 21:42 Blood Pressure 149/98 H 06/17/20 21:42 Pulse Oximetry 100 06/17/20 21:42 MDM - Allergic Reaction MDM Narrative Medical decision making narrative: Patient presents the emergency department for small area of erythema and edema surrounding recent vaccination site. She is afebrile and nontoxic-appearing. Could be allergic in nature, but will start gilmar
[2020-06-18 00:03] VITALS: BP 142/87; PULSE 89; RESP 20; O2SAT 96
== END 2020-06-18 00:05 | disposition home or self-care (01) ==
PROVIDERS: Emergency Provider Emergency Medicine
DX: L03.114 Cellulitis of left upper limb (principal); J45.909 Unspecified asthma, uncomplicated; Z86.711 Personal history of pulmonary embolism; D80.3 Selective deficiency of immunoglobulin G [IgG] subclasses
CPT/HCPCS: 99283

== ENCOUNTER 2020-11-25 07:33 | Emergency (ER) | payer OTHER, SELFPAY ==
[2020-11-25] VITALS (18 sets, daily range): BP systolic 130–141; BP diastolic 59–86; PULSE 65–97; RESP 13–24; TEMP 36.3; O2SAT 97–100
--- NOTE | ~2020-11-25 | CT_ITS ---
EXAMINATION: CTA chest PE protocol DATE: 11/25/2020 09:44 INDICATION: Chest pain. TECHNIQUE: Computed tomography angiography (CTA) of the chest was performed with 100 mL Omnipaque-350 intravenous contrast timed to evaluate the pulmonary arteries. Coronal maximum intensity projection 3D-reconstructions were created by the technologist. Automated exposure control and iterative reconst ruction technique were employed. The dose-length product was 984.78 mGy-cm. COMPARISON: Chest CT 09/24/2019 FINDINGS: There is mucous plugging in the lower lobes. There are airspace and groundglass opacities w ith volume loss in the basilar lower lobes. There is mild atelectasis in right middle lobe and lingul a. No pleural effusion. The heart size is normal. No pericardial effusion. There are surgical changes of the stomach. There is no pulmonary embolus. There is mild thoracic spondylosis. IMPRESSION: 1. No pulmonary embolus. 2. Mucous plugging in the lower lobes with mild atelectasis/scarring versus pneumonia in the basilar lower lobes. Reviewed, dictated and finalized at location A. IMPRESSION: 1. No pulmonary embolus. 2. Mucous plugging in the lower lobes with mild atelectasis/scarring versus pne umonia in the basilar lower lobes.
--- NOTE | 2020-11-25 08:39 | ECG_ITS ---
Measurements Intervals [place] Rate: 84 P: 69 OR: 185 QRS: 24 QRSD: 100 T: 3 QT: 385 QTc: 457 Interpretive Statements SINUS RHYTHM LOW QRS VOLTAGE IN PRECORDIAL LEADS BORDERLINE ST-T WAVE ABNORMALITY- INFERIOR LEADS BASELINE ARTIFACT- I, II, III, AVR, AVL, AVF, V2-V6 BORDERLINE ECG Electronically Signed On 11-25-2020 10:02:51 CDT by Sandeep Castorena D.O.
[2020-11-25 09:09] LABS: Basophils Absolute Auto 0.1 K/mm3 (0.0-0.1); Basophils Percent Auto 0.8 % (0.2-1.2); Eosinophils Absolute Auto 0.2 K/mm3 (0-0.3); Eosinophils Percent Auto 3.1 % (0-4.4); Hematocrit 36.8 % (37.0-47.0); Hemoglobin 11.3 g/dL (12.0-15.0); Immature Granulocyte Absolute 0.02 K/mm3 (0.00-0.031); Immature Granulocyte Percent A 0.3 % (0-0.5); Lymphocytes Percent Auto 28.7 % (18.3-44.2); Mean Corpuscular HGB Conc 30.7 g/dl (32-36); Mean Corpuscular Hemoglobin 24.8 pg (26-34); Mean Corpuscular Volume 80.7 fl (80-100); Mean Platelet Volume 10.5 fl (7.4-10.4); Monocytes Absolute Auto 0.6 K/mm3 (0.1-0.6); Monocytes Percent Auto 7.7 % (2.6-8.5); Neutrophils Absolute Auto 4.3 K/mm3 (1.3-6.7); Neutrophils Percent Auto 59.4 % (45.5-73.1); Platelet Count Result 230 k/mm3 (150-375); Red Blood Count 4.56 M/mm3 (4.2-5.4); Red Cell Distribution Width 15.7 % (11.5-14.5); White Blood Count 7.3 K/mm3 (4.5-10.0)
--- NOTE | 2020-11-25 09:19 | ED.HA ---
HPI - Headache General Chief Complaint: Headache Stated Complaint: CRUZ,Lung Hurts with inspiration Time Seen by Provider: 11/25/20 07:45 History of Present Illness HPI Narrative: Patient is a 55-year-old female who presents ER with headache and chest pain. She woke up this way this morning. Pain is located right anterior chest wall. Worse breath. Feels similar to previous pulmonary emboli. She has not been on anticoagulation for the last 9 months. She developed that about 1 year ago when she had COVID-19. Denies fevers chills or sweats. No productive cough. Headache is frontal and throbbing. Not worsened by bright lights or loud noises. Took some Tylenol this morning with minimal relief. This did not help her chest discomfort. No lower extremity swelling or cramping. No recent trauma or long distance travel. No recent hospitalization/immobilization. Related Data Home Medications Medication Instructions Recorded Confirmed albuterol sulfate 1.25 mg INHALATION QID PRN 09/24/19 09/25/19 levocetirizine 5 mg PO HS 09/24/19 09/25/19 budesonide-formoterol [Symbicort] 2 puff INHALATION Q12H 09/25/19 09/25/19 calcium carbonate-vitamin D3 1 tablet PO DAILY 09/25/19 09/25/19 [Calcium 500 + D] fluticasone propionate [Flonase 1 spray INTRANASAL DAILY 09/25/19 09/25/19 Allergy Relief] montelukast mg 06/17/20 Allergies Allergy/AdvReac Type Severity Reaction Status Date / Time clarithromycin Allergy Severe Hives Verified 11/25/20 07:51 clindamycin Allergy Severe Hives Verified 11/25/20 07:51 gabapentin Allergy Severe Hives Verified 11/25/20 07:51 peanut Allergy Severe Anaphylaxis Verified 11/25/20 07:51 Penicillins Allergy Severe Hives Verified 11/25/20 07:51 NSAIDS (Non-Steroidal AdvReac Severe S/P Verified 11/25/20 07:51 Anti-Inflamma GASTRIC SLEEVE sulfamethoxazole AdvReac Severe Gastrointestinal Verified 11/25/20 07:51 [From Bactrim] Upset trimethoprim [From Bactrim] AdvReac Severe Gastrointestinal Verified 11/25/20 07:51 Upset Review of Systems Review of Systems: All systems reviewed & are unremarkable except as noted in HPI and below Constitutional: Constitutional: Denies chills, Denies fever(s) and Denies weakness ENT: Denies nasal congestion and Denies sore throat Cardiovascular: Cardiovascular: Reports chest pain, Denies rapid heart rate and Denies radiating jaw, neck or arm pain Respiratory: Respiratory: Denies cough, Denies dyspnea and Denies wheezing Musculoskeletal: Musculoskeletal: Denies muscle cramps Neurologic: Reports headache(s), Denies focal weakness and Denies numbness PMFSH Past Medical History Medical History (Updated 11/25/20 @ 11:11 by Navarro Bonilla MD) Asthma IgG4 deficiency Pulmonary embolism Surgical History Surgical History (Updated 09/25/19 @ 02:18 by Himanshu Robin MD) Hx of lymph node biopsy Family History Family History Father Acute myocardial infarction Hypertension Prostate carcinoma Mother Cerebrovascular accident Congestive heart failure Diabetes mellitus Social History Social History Smoking status: Never smoker Alcohol intake: never Substance use: never Gender identity (if verbalized by the patient): Female Spiritual care concerns: No Exam Narrative: GENERAL: Well-appearing, well-nourished, and in no acute distress. HEAD: Normocephalic, atraumatic. EYES: PERRL and EOMI. ENT: Mucous membranes moist. CHEST: Clear to auscultation. No respiratory distress. HEART: Regular rate and rhythm. Normal peripheral pulses. ABDOMEN: Soft, nontender, nondistended. EXTREMITIES: Normal range of motion. No edema. NEURO: Alert and oriented x3. PSYCH: Normal mood and affect. Course Course Emergency Course: Patient informed results. Recommended Mucinex DM as an expectorant. Discharge home. Vital Signs Vital sign
[2020-11-25 09:25] LABS: Anion Gap 8 mmol/L (8-16); Blood Urea Nitrogen 11 mg/dL (7-17); Calcium 9.8 mg/dL (8.4-10.2); Carbon Dioxide 26 mmol/L (22-30); Chloride 107 mmol/L (98-107); Estimated CRCL calculation 102 ml/min; Estimated Glomerular Filt Rate > 60; Glucose 87 mg/dL (65-110); Potassium 3.7 mmol/L (3.4-5.0); Prothrombin Time 13.1 Seconds (11.1-14.7); Sodium 141 mmol/L (137-145)
[2020-11-25 09:26] LABS: Partial Thromboplastin Time 39.5 SECONDS (22.3-36.8)
[2020-11-25 09:36] LABS: Troponin I < 0.012 ng/mL (0.000-0.034)
== END 2020-11-25 11:35 | disposition home or self-care (01) ==
PROVIDERS: Emergency Provider Emergency Medicine
DX: R07.89 Other chest pain (principal); J45.909 Unspecified asthma, uncomplicated; D80.3 Selective deficiency of immunoglobulin G [IgG] subclasses; Z86.16 Personal history of COVID-19; Z86.711 Personal history of pulmonary embolism; R94.31 Abnormal electrocardiogram [ECG] [EKG]; R91.8 Other nonspecific abnormal finding of lung field
CPT/HCPCS: 36415; 71275; 80048; 84484; 85025; 85610; 85730; 93005; 99284; Q9967

== ENCOUNTER 2021-05-04 02:25 | Observation (INO) | payer BC, SELFPAY ==
[2021-05-04] VITALS (12 sets, daily range): BP systolic 106–160; BP diastolic 36–147; PULSE 96–119; RESP 18–28; TEMP 35.9–37.6; O2SAT 96–100; BMI 50.1
--- NOTE | ~2021-05-04 | CT_ITS ---
EXAMINATION: CTA chest PE abdomen pel DATE: 05/04/2021 03:33 INDICATION: Left chest pain. Left upper quadrant abdominal pain. TECHNIQUE: Computed tomography angiography (CTA) of the chest was performed with 100 mL Omnipaque-350 intravenous contrast timed to evaluate the pulmonary arteries. Coronal maximum intensity projection 3D-reconstructions were created by the technologist. Computed tomography (CT) of the abdomen and pelv is was performed with intravenous contrast. Automated exposure control and iterative reconstruction t echnique were employed. The dose-length product was 2450.06 mGy-cm. COMPARISON: Chest CT 11/25/2020 FINDINGS: CTA chest: There are patchy airspace opacities in the lower lobes, right middle lobe, and left upper lobe, consistent with pneumonia. No pleural effusion. The heart size is normal. There are coronary ar scottie calcifications. No pericardial effusion. There is no pulmonary embolus. There is mild hilar and mediastinal lymphadenopathy. There is mild thoracic spondylosis. CT abdomen and pelvis: The liver, gallbladder, spleen, pancreas, adrenal glands, and right kidney are normal. There is a 12 mm cyst in left kidney. There are surgical changes of the stomach. There are n o dilated loops of bowel. The appendix is normal. There is a small calcified fibroid in the uterus. P elvic floor relaxation is noted. There are no pathologically enlarged lymph nodes. There is no free i ntraperitoneal fluid. There is moderate lumbar spondylosis. IMPRESSION: 1. No pulmonary embolus. 2. Multifocal pneumonia. 3. Mild mediastinal and hilar lymphadenopathy, likely reactive. Reviewed, dictated and finalized at location A. [facility]
--- NOTE | ~2021-05-04 | XR_ITS ---
EXAMINATION: XR chest 1V portable DATE: 05/04/2021 03:02 INDICATION: Cough. Left lower quadrant abdominal pain. TECHNIQUE: A single frontal view of the chest was obtained. COMPARISON: Chest single view 09/24/2019, chest CT 05/04/2021 FINDINGS: There are patchy airspace opacities in the right lower lung zone and left mid and lower cierra g zones. No pleural effusion or pneumothorax. The heart size is normal. IMPRESSION: 1. Patchy airspace opacities in the right lower lung zone and left mid and lower lung zones, consiste nt with pneumonia. Reviewed, dictated and finalized at location A. [facility] [employer] IMPRESSION: 1. Patchy airspace opacities in the right lower lung zone and left mid and lowe r lung zones, consistent with pneumonia.
--- NOTE | 2021-05-04 02:36 | ECG_ITS ---
Measurements Intervals [place] Rate: 110 P: 52 IN: 144 QRS: 16 QRSD: 93 T: 14 QT: 319 QTc: 432 Interpretive Statements SINUS TACHYCARDIA BORDERLINE ST-T WAVE ABNORMALITY- INFERIOR LEADS BASELINE ARTIFACT- I, II, III, AVR, AVL, AVF, V1, V3-V6 ABNORMAL ECG Electronically Signed On 05-04-2021 7:12:37 [employer] by Sandeep Castorena D.O.
--- NOTE | 2021-05-04 02:37 | ED.ABDPAIN ---
HPI - Abdominal Pain General Chief Complaint: Abdominal Pain Stated Complaint: abd pain Time Seen by Provider: 05/04/21 02:27 Source: RN notes reviewed History of Present Illness HPI narrative: Patient presents emergency department from home for abdominal pain. Patient states symptoms began approximately 845 this evening pain is located in the left upper abdomen and is described as cramping in nature states that pain radiates across the abdomen whenever she coughs or takes a deep breath she denies any fevers or chills chest pain shortness of breath nausea vomiting diarrhea or any other symptoms states she took Tylenol at home for the symptoms with minimal relief Related Data Home Medications Medication Instructions Recorded Confirmed albuterol sulfate 1.25 mg INHALATION QID PRN 09/24/19 05/04/21 levocetirizine 5 mg PO HS 09/24/19 05/04/21 budesonide-formoterol [Symbicort] 2 puff INHALATION Q12H 09/25/19 05/04/21 montelukast 10 mg PO HS 06/17/20 05/04/21 azelastine 2 spray INTRANASAL BID 05/04/21 05/04/21 cyclobenzaprine 5 mg PO HS 05/04/21 05/04/21 Allergies Allergy/AdvReac Type Severity Reaction Status Date / Time clarithromycin Allergy Severe Hives Verified 11/25/20 07:51 clindamycin Allergy Severe Hives Verified 11/25/20 07:51 gabapentin Allergy Severe Hives Verified 11/25/20 07:51 peanut Allergy Severe Anaphylaxis Verified 11/25/20 07:51 Penicillins Allergy Severe Hives Verified 11/25/20 07:51 NSAIDS (Non-Steroidal AdvReac Severe S/P Verified 11/25/20 07:51 Anti-Inflamma GASTRIC SLEEVE sulfamethoxazole AdvReac Severe Gastrointestinal Verified 11/25/20 07:51 [From Bactrim] Upset trimethoprim [From Bactrim] AdvReac Severe Gastrointestinal Verified 11/25/20 07:51 Upset Review of Systems Review of Systems: Gen.: Denies fevers or chills ENT: Denies congestion Respiratory: Denies shortness of breath or cough CV: Denies chest pain or palpitations GI: See HPI denies burning, urgency, frequency or hematuria Musculoskeletal: Denies back pain or muscle pain Neuro: Denies numbness, tingling, weakness or focal weakness Skin: Denies rash Except as documented, all other systems reviewed and negative [facility] Past Medical History Medical History Asthma IgG4 deficiency Pulmonary embolism Surgical History Surgical History (Updated 09/25/19 @ 02:18 by Himanshu Banks, ) Hx of lymph node biopsy Family History Family History Father Acute myocardial infarction Hypertension Prostate carcinoma Mother Cerebrovascular accident Congestive heart failure Diabetes mellitus Social History Social History Smoking status: Never smoker Alcohol intake: former Substance use: never Gender identity (if verbalized by the patient): Female Spiritual care concerns: No Exam Narrative: APPEARANCE: No acute distress, nontoxic, resting in bed HEENT: Normocephalic, atraumatic, OMM RESPIRATORY: No respiratory distress, clear to auscultation bilaterally with no rhonchi wheezing or rales CARDIOVASCULAR: RRR s murmur ABDOMINAL: Soft nondistended tender palpation left upper quadrant left lower quadrant no tenderness in right upper quadrant and right lower quadrant no rebound or guarding MUSCULOSKELETAl: Moves all extremities. No clubbing, cyanosis or edema. NEURO: Awake and alert. Following commands, speech normal, no focal deficits SKIN:: Warm, dry. Normal Color PSYCHIATRIC: Normal affect/mood Course Course Emergency Course: Called and discussed with Dr. Robbins presentation work-up agrees with admission at this time Discussed with patient and family results of workup and diagnosis. Discussed need for admission. Patient and family understand and agree to current treatment plan Vital Signs Vital signs: Vital Signs Temperature 99.7 F H
[2021-05-04] MEDS: SODIUM CHLORIDE 0.9% IV 1,000 ML 999 ML IV CONT (02:43)
[2021-05-04] MEDS: ONDANSETRON INJ 4 MG/2 ML VIAL IV PUSH (02:44)
[2021-05-04] MEDS: MORPHINE SULFATE (*CRX) 4 MG/ML INJ IV PUSH ×3 (02:44→06:49)
[2021-05-04 02:47] LABS: Basophils Absolute Auto 0.1 K/mm3 (0.0-0.1); Basophils Percent Auto 0.4 % (0.2-1.2); Eosinophils Absolute Auto 0.1 K/mm3 (0-0.3); Eosinophils Percent Auto 0.8 % (0-4.4); Hematocrit 32.2 % (37.0-47.0); Hemoglobin 10.1 g/dL (12.0-15.0); Immature Granulocyte Absolute 0.14 K/mm3 (0.00-0.031); Immature Granulocyte Percent A 0.9 % (0-0.5); Lymphocytes Absolute Auto 2.24 K/mm3 (0.9-3.2); Lymphocytes Percent Auto 14.2 % (18.3-44.2); Mean Corpuscular HGB Conc 31.4 g/dl (32-36); Mean Corpuscular Hemoglobin 24.3 pg (26-34); Mean Corpuscular Volume 77.4 fl (80-100); Monocytes Absolute Auto 1.2 K/mm3 (0.1-0.6); Monocytes Percent Auto 7.8 % (2.6-8.5); Neutrophils Percent Auto 75.9 % (45.5-73.1); Platelet Count Result 284 k/mm3 (150-375); Red Blood Count 4.16 M/mm3 (4.2-5.4); White Blood Count 15.8 K/mm3 (4.5-10.0)
[2021-05-04 02:56] LABS: Alanine Aminotransferase 29 U/L (4-35); Albumin Level 4.2 g/dL (3.5-5.1); Alkaline Phosphatase 119 U/L (38-126); Anion Gap 9 mmol/L (8-16); Aspartate Amino Transferase 42 U/L (14-36); Bilirubin,Total 0.4 mg/dL (0.2-1.3); Blood Urea Nitrogen 9 mg/dL (7-17); Calcium 9.3 mg/dL (8.4-10.2); Carbon Dioxide 24 mmol/L (22-30); Chloride 103 mmol/L (98-107); Estimated CRCL calculation 101 ml/min; Estimated Glomerular Filt Rate > 60; Glucose 124 mg/dL (65-110); Lipase 93 U/L (23-300); Potassium 3.9 mmol/L (3.4-5.0); Sodium 136 mmol/L (137-145)
[2021-05-04 03:36] LABS: Lactic Acid Reflex 0.9 mmol/L (0.7-2.1)
[2021-05-04 03:53] LABS: Add Urine Microscopic? YES; Appearance Urine Clear (Clear); Bilirubin Urine Negative (Negative); Blood Urine Negative (Negative); Color Urine Yellow (Yellow); Glucose Urine UA Negative (Negative); Ketones Urine Negative (Negative); Leukocyte Esterase Ur Negative LEU/UL (Negative); Mucus Urine Rare /lpf; Nitrate Urine Negative (Negative); Protein Urine Negative (Negative); RBC Urine 0-2 /hpf (0-2); Squamous Epithelial Cell Urine Few /hpf (Few); WBC Urine 0-3 /hpf
[2021-05-04 03:53] LABS: Partial Thromboplastin Time 39.2 SECONDS (22.3-36.8)
[2021-05-04 03:58] LABS: INR 1.2; Prothrombin Time 14.9 Seconds (11.1-14.7)
[2021-05-04 04:04] LABS: Specific Grav Ur 1.051 (1.001-1.035)
[2021-05-04 04:28] LABS: SARS-CoV-2 RNA PCR Negative
[2021-05-04 05:10] LABS: Troponin I < 0.012 ng/mL (0.000-0.034)
--- NOTE | 2021-05-04 05:17 | PM.IMHP ---
H&P: HPI History of Present Illness Date/Time: 05/04/21 05:17 Chief Complaint: Shortness of breath Narrative: This is a 56-year-old female with past medical history significant for asthma, morbid obesity, persistent cough. Patient presents to the emergency room due to pain with deep inspiration on the left side of her chest, has had persistent cough with scanty production of sputum for the last several days or so, poor appetite, patient has been using her home inhaler frequently to help her shortness of breath, patient denies any fevers, any rigors ,any chills, no nausea, no vomiting, no abdominal pain, no diarrhea, no chest pain no palpitations no calves pain, no leg swelling, no ankle swelling. Preliminary workup was significant for CT PE protocol was negative for acute pulmonary embolism, a COVID test was negative a chest x-ray showed diffuse bilateral infiltrates. Patient is been admitted for further evaluation management and treatment. Review of Systems Review of Systems: Shortness of breath persistent cough pain with deep inspiration poor appetite generalized malaise. Constitutional: Constitutional: Denies chills, Reports fatigue, Denies fever(s), Reports malaise, Denies night sweats and Reports poor appetite Eyes: Eyes: Denies change in vision ENT: Denies dysphagia, Denies vertigo, Denies dizziness, Denies nasal congestion, Denies nasal discharge, Denies nasal obstruction and Denies odynophagia Cardiovascular: Cardiovascular: Denies chest pain, Denies pedal edema, Denies irregular heart rhythm, Denies claudication, Denies leg edema, Denies lightheadedness, Denies radiating jaw, neck or arm pain, Denies palpitations, Denies dyspnea on exertion and Denies orthopnea Respiratory: Respiratory: Denies change in phlegm color, Reports cough, Denies excessive phlegm production, Reports pain on inspiration, Reports dyspnea and Reports wheezing Comments: No hemoptysis, scanty production of phlegm. Gastrointestinal: Gastrointestinal: Denies abdominal pain, Denies dyspepsia, Denies heartburn, Denies diarrhea, Denies nausea and Denies vomiting Genitourinary: Genitourinary: Reports no additional female genitourinary complaints and Reports as per HPI Musculoskeletal: Musculoskeletal: Denies myalgias, Denies arthralgias and Denies joint swelling Integumentary/Breasts: Skin/Breast: Denies rash Neurologic: Denies dizziness, Denies focal weakness and Denies Sensory deficit (Neuro) Psychiatric: Psychiatric: Reports no additional psychiatric complaints and Reports as per HPI Endocrine: Endocrine: Denies cold intolerance, Denies flushing, Denies heat intolerance, Denies polyphagia, Denies polydipsia, Denies polyuria and Denies palpitations Hematologic/Lymphatic: Hematologic/Lymphatic: Reports no additional hematologic/lymphatic complaints and Reports as per HPI Allergic/Immunologic: Allergic/Immunologic: Reports no additional allergic/immunologic complaints and Reports as per HPI PMFSH Past Medical History Medical History Asthma IgG4 deficiency Pulmonary embolism Surgical History Surgical History (Updated 09/25/19 @ 02:18 by Himanshu BanksMD) Hx of lymph node biopsy Family History Family History Father Acute myocardial infarction Hypertension Prostate carcinoma Mother Cerebrovascular accident Congestive heart failure Diabetes mellitus Social History Social History Smoking status: Never smoker Alcohol intake: never Substance use: never Gender identity (if verbalized by the patient): Female Spiritual care concerns: No Meds Home Medications and Allergies Home Medications Medication Instructions Recorded Confirmed Type albuterol sulfate 1.25 mg INHALATION QID PRN 09/24/19 09/25/19 History levocetirizine 5 mg PO HS 09/24/19 09/25/19 History
--- NOTE | 2021-05-04 05:51 | ADMGEN ---
This patient, Marie Orourke, was admitted to 3 [facility] Surg Room 312-01. Patient/family oriented to hospital policies and general routines including ID bracelet, bed and alarms, visiting hours, pain management, procedures, bathroom and other care routines, personal items, smoking policy, room service/diet, and visiting hours. Information on how to activate the Rapid Response Team has been discussed. Patient/Family are encouraged to report perceived risks to care and to ask questions if they do not understand what they are told or what they should do.
[2021-05-04] MEDS: SODIUM CHLORIDE 0.9% IV 1,000 ML 100 ML IV CONT (06:14)
[2021-05-04] MEDS: IPRATROPIUM BR 0.02% INH SOLN 0.5 MG/2.5 ML VIAL INHALATION ×3 (08:23→20:23)
[2021-05-04] MEDS: ALBUTEROL SULFATE NEB 2.5 MG/0.5 ML INH INHALATION ×3 (08:23→20:24)
[2021-05-04] MEDS: traMADol HCL (*CRX) 50 MG TABLET PO (10:06)
[2021-05-04] MEDS: AZELASTINE HCL NASAL 0.1% 137 MCG/SPR 30 ML BTL 2 SPRAY NASAL ×2 (10:07→20:34)
--- NOTE | 2021-05-04 10:33 | PM.IMPN ---
Progress Note: A&P Assessment and Plan (1) Community acquired pneumonia: Qualifiers: Laterality: unspecified laterality Qualified Code(s): J18.9 - Pneumonia, unspecified organism Code(s): J18.9 - Pneumonia, unspecified organism Status: Acute Assessment and Plan: Patient is a 56-year-old woman with a history of bariatric surgery, asthma, who presented emergency room for left-sided chest pain. Patient states she has not been feeling well for 6 days and was having symptoms of weakness, fatigue, cough. She was not feeling any better and was taking [id number] medications for her cough without any relief. Prior to arrival she developed left lower chest pain which was worse with taking a deep breath and coughing so she came to the emergency room for further evaluation. Initial vitals showed blood pressure was elevated 160/147, tachycardic heart rate 119 beats per minute, increased respiratory rate 28, low-grade fever at 99.7?, oxygen saturation 100% on room air. Initial labs showed leukocytosis at 15,000, elevated neutrophil count is 75%, microcytic anemia with a hemoglobin of 10, hematocrit 32% which appears to be her baseline. Normal INR, elevated PT and PTT. Slight hyponatremia at 136. Normal Renal function. Slight elevation of AST at 42. Negative troponin. Negative lipase. Normal urinalysis. Negative for COVID PCR. Chest x-ray showed patchy opacities in the right lower lung zone and left mid and lower lung zones consistent with pneumonia. CTA chest abdomen pelvis showed no PE, multifocal pneumonia, mild mediastinal and hilar lymphadenopathy likely reactive. Patient was admitted to the hospital under observation status for community-acquired started on IV Levaquin antibiotics for pneumonia, IV fluid hydration, blood cultures were ordered and pending. Continue DuoNeb treatments every 6 hours IV Levaquin #1 Blood cultures pending Will obtain sputum [facility] for cough p.r.n. Vitals are stable on room air, afebrile Continue monitoring. (2) Sepsis: Code(s): A41.9 - Sepsis, unspecified organism Status: Acute Assessment and Plan: Patient meets criteria for sepsis with tachycardia, leukocytosis, low-grade fever, in the setting of pneumonia Blood cultures pending Sputum culture pending IV antibiotics for pneumonia Continue monitoring. (3) Chest wall pain: Code(s): R07.89 - Other chest pain Status: Acute Assessment and Plan: Oral pain medications as needed for chest wall pain which is most likely secondary to muscular pain from coughing or pleurisy Also try heating pad for pain. Instructed to use Incentive Spirometer No PE on CTA Continue monitoring (4) Asthma: Qualifiers: Asthma complication type: unspecified Asthma persistence: unspecified Asthma severity: unspecified severity Qualified Code(s): J45.909 - Unspecified asthma, uncomplicated Code(s): J45.909 - Unspecified asthma, uncomplicated Status: Chronic Assessment and Plan: Chronic. No wheezing on exam. Continue scheduled breathing treatments Q6hrs Continue to monitor (5) Morbid obesity with BMI of 45.0-49.9, adult: Code(s): E66.01 - Morbid (severe) obesity due to excess calories; Z68.42 - Body mass index [BMI] 45.0-49.9, adult Status: Acute Assessment and Plan: Lifestyle and diet modifications Time Spent With Patient Time with patient: 25 - 35 minutes Subjective Date/time seen: 05/04/21 10:33 Interval history: Date of service 05/04/2021: Patient still feels fatigued, generalized weakness, lack of appetite, mild productive cough which is causing her left-sided pain to become worse. She has worse l
[2021-05-04] MEDS: ENOXAPARIN 40 MG/0.4 ML SYRINGE SUB-Q (11:31)
--- NOTE | 2021-05-04 13:10 | PCWOUND ---
WOCN NOTE spoke to day RN, received report patient does not have any wounds.
--- NOTE | 2021-05-04 13:25 | PCDIET ---
Pt screened in for Pressure Ulcer. Spoke to wound RN who reports that pt is not positive for pressure ulcer. Current nutrition is a regular diet with reported intake of 10%. Added orders for a dietary supplement of Ensure Compact BID to provide an additional 220kcal and 9g of protein to increase caloric intake. Agree with diet orders at this time. No nutritional interventions at this time. Will follow up in 5 days.
[2021-05-04] MEDS: KETOROLAC 15 MG/ML VIAL (*BKC) IV PUSH (17:09)
[2021-05-04] MEDS: PANTOPRAZOLE SODIUM IV 40 MG VIAL IV PUSH ×2 (17:09→20:35)
[2021-05-04] MEDS: CYCLOBENZAPRINE HCL 5 MG TABLET PO (20:35)
[2021-05-04] MEDS: LORATADINE 10 MG TABLET PO (20:36)
[2021-05-04] MEDS: MONTELUKAST SODIUM 10 MG TABLET PO (20:36)
[2021-05-05] VITALS (8 sets, daily range): BP systolic 99–124; BP diastolic 44–80; PULSE 72–94; RESP 18–20; TEMP 35.6; O2SAT 95
[2021-05-05] MEDS: KETOROLAC 15 MG/ML VIAL (*BKC) IV PUSH (02:20)
[2021-05-05] MEDS: IPRATROPIUM BR 0.02% INH SOLN 0.5 MG/2.5 ML VIAL INHALATION ×3 (02:54→13:06)
[2021-05-05] MEDS: ALBUTEROL SULFATE NEB 2.5 MG/0.5 ML INH INHALATION ×3 (02:54→13:06)
[2021-05-05] MEDS: ACETAMINOPHEN 325 MG TABLET 650 MG PO ×2 (06:37→12:19)
[2021-05-05 07:09] LABS: Basophils Percent Auto 0.4 % (0.2-1.2); Eosinophils Absolute Auto 0.1 K/mm3 (0-0.3); Eosinophils Percent Auto 1.4 % (0-4.4); Hematocrit 26.8 % (37.0-47.0); Hemoglobin 8.1 g/dL (12.0-15.0); Immature Granulocyte Absolute 0.08 K/mm3 (0.00-0.031); Immature Granulocyte Percent A 0.8 % (0-0.5); Lymphocytes Absolute Auto 3.13 K/mm3 (0.9-3.2); Lymphocytes Percent Auto 31.7 % (18.3-44.2); Mean Corpuscular HGB Conc 30.2 g/dl (32-36); Mean Corpuscular Volume 79.5 fl (80-100); Mean Platelet Volume 10.5 fl (7.4-10.4); Monocytes Absolute Auto 0.7 K/mm3 (0.1-0.6); Monocytes Percent Auto 6.8 % (2.6-8.5); Neutrophils Absolute Auto 5.8 K/mm3 (1.3-6.7); Neutrophils Percent Auto 58.9 % (45.5-73.1); Platelet Count Result 275 k/mm3 (150-375); Red Blood Count 3.37 M/mm3 (4.2-5.4); Red Cell Distribution Width 15.2 % (11.5-14.5); White Blood Count 9.9 K/mm3 (4.5-10.0)
[2021-05-05 07:45] LABS: Iron 47 ug/dL (37-170)
[2021-05-05 07:56] LABS: Percent Iron Saturation 20 % (20-50)
[2021-05-05 08:02] LABS: Anion Gap 5 mmol/L (8-16); Blood Urea Nitrogen 7 mg/dL (7-17); Calcium 8.6 mg/dL (8.4-10.2); Carbon Dioxide 28 mmol/L (22-30); Chloride 103 mmol/L (98-107); Estimated CRCL calculation 103 ml/min; Estimated Glomerular Filt Rate > 60; Glucose 107 mg/dL (65-110); Magnesium 2.4 mg/dL (1.6-2.3); Potassium 3.2 mmol/L (3.4-5.0); Sodium 136 mmol/L (137-145)
[2021-05-05 08:57] LABS: Platelet Estimate Adequate (Adequate)
[2021-05-05 08:58] LABS: Hypochromasia 1+ (NORMAL); Schistocytes 1+ (NORMAL)
[2021-05-05] MEDS: PANTOPRAZOLE SODIUM IV 40 MG VIAL IV PUSH (09:21)
[2021-05-05 09:30] LABS: Folic Acid 8.2 ng/mL (2.76->20)
[2021-05-05] MEDS: POTASSIUM CHLORIDE 20 MEQ TABLET 40 MEQ PO (12:18)
--- NOTE | 2021-05-05 13:03 | PM.DS ---
DS: Admitting Diagnosis Discharge Date 05/05/21 Admitting Diagnosis Pneumonia DS: Discharge Diagnosis Discharge Diagnosis (1) Community acquired pneumonia: Qualifiers: Laterality: unspecified laterality Qualified Code(s): J18.9 - Pneumonia, unspecified organism Code(s): J18.9 - Pneumonia, unspecified organism Status: Acute Assessment and Plan: Patient is a 56-year-old woman with a history of bariatric surgery, asthma, who presented emergency room for left-sided chest pain. Patient states she has not been feeling well for 6 days and was having symptoms of weakness, fatigue, cough. She was not feeling any better and was taking [id number] medications for her cough without any relief. Prior to arrival she developed left lower chest pain which was worse with taking a deep breath and coughing so she came to the emergency room for further evaluation. Initial vitals showed blood pressure was elevated 160/147, tachycardic heart rate 119 beats per minute, increased respiratory rate 28, low-grade fever at 99.7?, oxygen saturation 100% on room air. Initial labs showed leukocytosis at 15,000, elevated neutrophil count is 75%, microcytic anemia with a hemoglobin of 10, hematocrit 32% which appears to be her baseline. Normal INR, elevated PT and PTT. Slight hyponatremia at 136. Normal Renal function. Slight elevation of AST at 42. Negative troponin. Negative lipase. Normal urinalysis. Negative for COVID PCR. Chest x-ray showed patchy opacities in the right lower lung zone and left mid and lower lung zones consistent with pneumonia. CTA chest abdomen pelvis showed no PE, multifocal pneumonia, mild mediastinal and hilar lymphadenopathy likely reactive. Patient was admitted to the hospital under observation status for community-acquired started on IV Levaquin antibiotics for pneumonia, IV fluid hydration, blood cultures were ordered and pending. Patient is feeling better at this time. She is not having any more left sided chest pain with taking deep breath. She is able to eat and drink more. She has only had little sputum production in the last 24 hours. She feels comfortable with being discharged at this time. She will be discharged on Levaquin for 5 more days, total of 7 days of treatment for her pneumonia. She has Tessalon Perles to take at home and recommended Robitussin [id number] for her cough Continue taking Tylenol as needed for her left-sided chest pain Blood cultures blood cultures are negative to date. Sputum culture shows growth of normal oropharyngeal jared. Follow-up with PCP in 1 week. Return to ER warnings given. The patient understands and agrees the plan all questions answered. (2) Sepsis: Code(s): A41.9 - Sepsis, unspecified organism Status: Acute Assessment and Plan: Patient meets criteria for sepsis with tachycardia, leukocytosis, low-grade fever, in the setting of pneumonia Blood cultures are negative to date Sputum culture normal oral jared Continue antibiotics upon discharge for her pneumonia (3) Chest wall pain: Code(s): R07.89 - Other chest pain Status: Acute Assessment and Plan: Oral pain medications as needed for chest wall pain which is most likely secondary to muscular pain from coughing or pleurisy Also try heating pad for pain. Instructed to use Incentive Spirometer No PE on CTA Continue antitussives and Tylenol for pain (4) Asthma: Qualifiers: Asthma complication type: unspecified Asthma persistence: unspecified Asthma severity: unspecified severity Qualified Code(s): J45.909 - Unspecified asthma, uncomplicated Code(s): J45.909 - Unspecified asthma, uncomplicated Status: Chronic Assessment and Plan: Chronic. No wheezing on exam.
[2021-05-10 09:32] LABS: Influenza A QL RT-PCR Negative (Negative); Influenza B QL RT-PCR Negative (Negative)
== END 2021-05-05 14:25 | disposition home or self-care (01) ==
LOC: ANHED 03:52 → ANH3MEDSUR 05:07
PROVIDERS: Physician Assistant; Admitting Provider Internal Medicine; Emergency Provider Emergency Medicine; PCP Family Medicine; Visit Provider Internal Medicine
DX: J18.9 Pneumonia, unspecified organism (principal); A41.9 Sepsis, unspecified organism; R07.89 Other chest pain; J45.909 Unspecified asthma, uncomplicated; D80.3 Selective deficiency of immunoglobulin G [IgG] subclasses; Z20.822 Contact with and (suspected) exposure to COVID-19; Z86.711 Personal history of pulmonary embolism; Z79.51 Long term (current) use of inhaled steroids; E66.01 Morbid (severe) obesity due to excess calories; Z68.43 Body mass index [BMI] 50.0-59.9, adult
CPT/HCPCS: 36415; 71045; 71275; 74177; 80048; 80053; 81001; 82607; 82728; 82746; 83540; 83550; 83605; 83690; 83735; 84484; 85025; 85610; 85730; 87040; 87070; 87205; 87502; 93005; 94640; 96361; 96372; 96374; 96375; 96376; 99285; A9270; C9113; C9803; G0378; J1650; J1885; J1956; J2270; J2405; J7030; Q9967; U0003; U0005